=== PATIENT | male | born 1970 | race Caucasian/White ===

== ENCOUNTER 2017-12-18 11:09 | Observation (INO) ==
--- NOTE | 2017-12-18 13:52 | ED ---
HPI General Chief complaint: Respiratory Symptoms Stated complaint: SOB Time Seen by Provider: 12/18/17 13:24 Source: patient Mode of arrival: ambulatory Limitations: no limitations History of Present Illness HPI narrative: 47 yo male here for evaluation of SOB for 3 weeks. Per patient he has a history of CHF, ACS, HTN, DM. Per patient he ran out of his carvidilol and metformin about a month ago. Has been doing well but has been moving from [place] 4 weeks ago. Has had episodes of SOB that come and go, sometimes with movement, sometimes on their own. States compliance with his medications except for carvidilol and metformin. Follow with [place] for care and has an appointment in a few weeks with them. Per patient he has an EF of 20%. Has an AICD placed in August and has not had follow up care due to the move since. Denies feeling like it is shocking him. No pain. Currently feels slightly SOB. Per patient he had an episode this morning when he woke up of severe SOB which prompted evaluation. No other medical problems at this time. Takes aspirin but no other blood thinners. Related Data Home Medications Medication Instructions Recorded Confirmed aspirin 81 mg PO DAILY 12/18/17 12/18/17 atorvastatin 20 mg PO DAILY 12/18/17 12/18/17 carvedilol 12.5 mg PO BID 12/18/17 12/18/17 digoxin [Lanoxin] 0.25 mg PO DAILY 12/18/17 12/18/17 furosemide 40 mg PO DAILY 12/18/17 12/18/17 lisinopril 10 mg PO DAILY 12/18/17 12/18/17 metformin 500 mg PO BID 12/18/17 12/18/17 venlafaxine 150 mg PO BID 12/18/17 12/18/17 Allergies Allergy/AdvReac Type Severity Reaction Status Date / Time No Known Allergies Allergy Unverified 12/18/17 13:39 Review of Systems ROS: all other systems reviewed are negative [facility] Medical History Medical History CHF (congestive heart failure) (Acute) Diabetes 1.5, managed as type 1 (Acute) HTN (hypertension) (Acute) Implantable cardioverter-defibrillator (ICD) in situ (Acute) Social History Social History Substance History: Past History Second Hand Smoke Exposure: No Smoking Status: Never smoker Tobacco Type: Cigarettes How Often Do You Have a Drink Containing Alcohol: Never Recent Travel in [facility] within the Last 8 Weeks: No Recent Out of Country Travel within the Last 8 Weeks: No Substance Abuse Detail Methamphetamine: Substance Use Status: Early Remission Immunization History Tetanus Immunization: <5 Years Hx Influenza Vaccine This Season: Yes Exam Narrative Exam Narrative: GENERAL: SKIN: Warm and dry. HEAD: Atraumatic. Normocephalic. EYES: Pupils equal and round. No scleral icterus. No injection or drainage. ENT: No nasal bleeding or discharge. Mucous membranes pink and moist. Tongue is midline. No uvula deviation. NECK: Trachea midline. No JVD. CARDIOVASCULAR: Regular rate and rhythm. No murmurs, S3, s4. RESPIRATORY: No accessory muscle use. Rales heard in the lower lung esteban. Breath sounds equal bilaterally. GASTROINTESTINAL: Abdomen soft, non-tender, nondistended. Hepatic and splenic margins not palpable. MUSCULOSKELETAL: Extremities without clubbing, cyanosis, or edema. No obvious deformities. Full ROM of the upper and lower extremities bilaterally. 2+ pulses. NEUROLOGICAL: Awake and alert. No obvious cranial nerve deficits. Motor grossly within normal limits. Five out of 5 muscle strength in the arms and legs. Normal speech. PSYCHIATRIC: Appropriate mood and affect; insight and judgment normal. Course Initial Documented Vital Signs Temperature 97.8 F 12/18/17 11:29 Pulse Rate 76 12/18/17 11:29 Respiratory Rate 18 12/18/17 11:29 Blood Pressure 121/65 12/18/17 11:29 Pulse Oximetry 96 12/18/17 11:29 Last Documented Vital Signs Temperature 98.9 F 12/18/17 13:28 Pulse Rate 77 12/18/17 13:28 Respiratory Rate 18 12/18/17 13:28 Blood Pressure 119/71 12/18/17 13:28 Pulse Oximetry 96 12/18/17 15:53 Medical Decision Making SRIDEVI Attestation SRIDEVI supervised visit: Yes Attestation: I, Dr. breaux, have reviewed the advance practice practitioner's documentation and am in agreement, met with the patient face to face, made the diagnosis, and the medical decision making was done by me. *My assessment and Findings: 47 y/o male presents with shortness of breath with known depressed EF. Troponin is mildly elevated. CT without PE. Patient agrees to observation for further care MDM Narrative Medical decision making narrative: 47 yo male here for evaluation of SOB. Patient properly examined and found signs and symptoms of unclear etiology. Labs and imaging were done here. Labs and imaging did show what appears to be slightly elevated troponin. D-dimer also elevated. CTA was ordered. CT was negative for acute PE. I suspect the troponin may be elevated secondary to the patient's chronic heart disease. I do not have any previous troponin and patient himself is not aware that his troponin was elevated before. Because of this in the recommend admission for trending of troponins to better evaluate whether this may be cardiac in nature or not. I do suspect that some of the patient's symptoms may be anxiety related but cannot completely rule out heart disease secondary to his significant cardiac history. Patient agrees with this plan. My attending Dr. Breaux was made aware of findings and agrees to admission to the medical team. Case discussed with Dr. Francisco previous admission to his service. Patient was given aspirin. No heparin given at this time. Patient at all times has completely denied any chest pain. Medical Screen Exam Complete: Yes Emergency Medical Condition: Yes Differential Diagnosis Differential Diagnosis: CHF vs angina vs PE vs pleural effusion vs COPD vs asthma vs CHF exacerbation vs ACS Medical Records Medical records reviewed: Yes I reviewed the patient's medical records. Lab Data Lab results reviewed: Yes I reviewed the patient's lab results. Lab results narrative: troponin of 0.07 coags with d-dimmer elevated. Result diagrams: 12/18/17 13:42 12/18/17 13:42 Lab Results 12/18/17 12/18/17 12/18/17 Range/Units 13:42 13:42 13:42 WBC 8.1 (4.0-11.0) th/mm3 RBC 4.51 (4.50-5.90) mil/mm3 Hgb 13.9 (13.0-17.0) gm/dL Hct 40.2 (39.0-51.0) % MCV 89.2 (80.0-100.0) fL MCH 30.8 (27.0-34.0) pg MCHC 34.5 (32.0-36.0) % RDW 14.2 (11.6-17.2) % Plt Count 132 L (150-450) th/mm3 MPV 9.6 (7.0-11.0) fL Neut % (Auto) 63.1 (16.0-70.0) % Lymph % (Auto) 24.9 (9.0-44.0) % Forrest % (Auto) 9.3 H (0.0-8.0) % Eos % (Auto) 1.7 (0.0-4.0) % Baso % (Auto) 1.0 (0.0-2.0) % Neut # (Auto) 5.1 (1.8-7.7) th/mm3 Lymph # (Auto) 2.0 (1.0-4.8) th/mm3 Forrest # (Auto) 0.8 (0.0-0.9) th/mm3 Eos # (Auto) 0.1 (0.0-0.4) th/mm3 Baso # (Auto) 0.1 (0.0-0.2) th/mm3 WBC Differential . Differential Comment Auto diff final PT (9.8-11.6) sec INR Ratio APTT (24.3-30.1) sec D-Dimer Quant (PE/DVT) (0.00-0.50) mg/L FEU Sodium 143 (136-145) meq/L Potassium 3.8 (3.5-5.1) meq/L Chloride 109 H (98-107) meq/L Carbon Dioxide 24.4 (21.0-32.0) meq/L Anion Gap 10 (5-15) meq/L BUN 18 (7-18) mg/dL Creatinine 1.30 (0.60-1.30) mg/dL Estimated GFR 59 L (>89) mL/min Random Glucose 139 H (74-106) mg/dL Calcium 8.0 L (8.5-10.1) mg/dL Total Bilirubin 0.6 (0.2-1.0) mg/dL AST 28 (15-37) U/L ALT 37 (12-78) U/L Alkaline Phosphatase 93 (45-117) U/L Total Creatine Kinase 195 (39-308) U/L CK-MB (CK-2) 5.6 H (0.5-3.6) ng/mL Troponin I 0.07 H (0.02-0.05) ng/mL B-Natriuretic Peptide 245 H (0-100) pg/mL Total Protein 6.7 (6.4-8.2) g/dL Albumin 3.3 L (3.4-5.0) g/dL 12/18/17 Range/Units 15:46 WBC (4.0-11.0) th/mm3 RBC (4.50-5.90) mil/mm3 Hgb (13.0-17.0) gm/dL Hct (39.0-51.0) % MCV (80.0-100.0) fL MCH (27.0-34.0) pg MCHC (32.0-36.0) % RDW (11.6-17.2) % Plt Count (150-450) th/mm3 MPV (7.0-11.0) fL Neut % (Auto) (16.0-70.0) % Lymph % (Auto) (9.0-44.0) % Forrest % (Auto) (0.0-8.0) % Eos % (Auto) (0.0-4.0) % Baso % (Auto) (0.0-2.0) % Neut # (Auto) (1.8-7.7) th/mm3 Lymph # (Auto) (1.0-4.8) th/mm3 Forrest # (Auto) (0.0-0.9) th/mm3 Eos # (Auto) (0.0-0.4) th/mm3 Baso # (Auto) (0.0-0.2) th/mm3 WBC Differential Differential Comment PT 10.0 (9.8-11.6) sec INR 1.0 Ratio APTT 21.9 L (24.3-30.1) sec D-Dimer Quant (PE/DVT) 0.67 H (0.00-0.50) mg/L FEU Sodium (136-145) meq/L Potassium (3.5-5.1) meq/L Chloride (98-107) meq/L Carbon Dioxide (21.0-32.0) meq/L Anion Gap (5-15) meq/L BUN (7-18) mg/dL Creatinine (0.60-1.30) mg/dL Estimated GFR (>89) mL/min Random Glucose (74-106) mg/dL Calcium (8.5-10.1) mg/dL Total Bilirubin (0.2-1.0) mg/dL AST (15-37) U/L ALT (12-78) U/L Alkaline Phosphatase (45-117) U/L Total Creatine Kinase (39-308) U/L CK-MB (CK-2) (0.5-3.6) ng/mL Troponin I (0.02-0.05) ng/mL B-Natriuretic Peptide (0-100) pg/mL Total Protein (6.4-8.2) g/dL Albumin (3.4-5.0) g/dL Imaging Data Attestation: I personally reviewed and interpreted this imaging study as follows : Radiologist's impression: Chest X-Ray 12/18/17 13:39 Cardiomegaly. Pacer device from a left subclavian transvenous approach noted. Calcified granuloma right lung base. No obvious consolidation or effusion. CONCLUSION: Clear lungs. Chest CTA 12/18/17 16:28 CONCLUSION: Unremarkable study. ECG Data Attestation: I personally reviewed and interpreted this ECG as follows: Interpretation: EKG shows sinus rhythm with no sign of acute ischemia or arrhythmia. 2 PVCs noted on the EKG. No ST elevations noted. Read by me and attending. Discharge Plan Discharge Disposition Patient Disposition: 30 Still Patient Discharge Details Diagnosis: Exertional dyspnea, Elevated troponin I level Physicians Team ED Provider: Katie Breaux ED Midlevel Provider: Finesse Tolentino Primary Care Provider: Primary Care Chelsea Romero Rxs /Orders / Referrals /Forms Prescriptions: No Action furosemide 40 mg Tablet 40 mg PO DAILY RF: 0 metformin 500 mg Tablet 500 mg PO BID RF: 0 atorvastatin 20 mg Tablet 20 mg PO DAILY RF: 0 carvedilol 12.5 mg Tablet 12.5 mg PO BID RF: 0 venlafaxine 75 mg Tablet 150 mg PO BID RF: 0 aspirin 81 mg Tablet,Delayed Release (Dr/Ec) 81 mg PO DAILY RF: 0 digoxin [Lanoxin] 250 mcg Tablet 0.25 mg PO DAILY RF: 0 lisinopril 10 mg Tablet 10 mg PO DAILY RF: 0 Discharge Interventions Interventions: Vital Signs Last Done: 12/18/17 13:28 Status ED Status: Pending Admission
[2017-12-18 13:59] LABS: Baso # (Auto) 0.1 th/mm3 (0.0-0.2); Eos # (Auto) 0.1 th/mm3 (0.0-0.4); Eos % (Auto) 1.7 % (0.0-4.0); Hematocrit 40.2 % (39.0-51.0); Hemoglobin 13.9 gm/dL (13.0-17.0); Lymph % (Auto) 24.9 % (9.0-44.0); Mean Corpuscular HGB Conc 34.5 % (32.0-36.0); Mean Corpuscular Hemoglobin 30.8 pg (27.0-34.0); Mean Corpuscular Volume 89.2 fL (80.0-100.0); Mean Platelet Volume 9.6 fL (7.0-11.0); Mono # (Auto) 0.8 th/mm3 (0.0-0.9); Mono % (Auto) 9.3 % (0.0-8.0); Neut # (Auto) 5.1 th/mm3 (1.8-7.7); Neut % (Auto) 63.1 % (16.0-70.0); Platelet Count 132 th/mm3 (150-450); Red Blood Count 4.51 mil/mm3 (4.50-5.90); Red Cell Distribution Width 14.2 % (11.6-17.2); White Blood Count 8.1 th/mm3 (4.0-11.0)
[2017-12-18 14:10] LABS: Alkaline Phosphatase 93 U/L (45-117); Creatine Kinase 195 U/L (39-308); Total Protein 6.7 g/dL (6.4-8.2); Troponin I 0.07 ng/mL (0.02-0.05)
--- NOTE | 2017-12-18 14:13 | XR ---
EXAM DATE: 12/18/2017 2:03 PM EDT AGE/SEX: 47 years / Male INDICATIONS: Shortness of breath. CLINICAL DATA: This is the patient's initial encounter. Patient reports that signs and symptoms have been present for 3 weeks and indicates a pain score of 0/10. MEDICAL/SURGICAL HISTORY: Congestive heart failure. Hypertension. Diabetes mellitus type II. Pacemaker. COMPARISON: No prior exams available for comparison. FINDINGS: Cardiomegaly. Pacer device from a left subclavian transvenous approach noted. Calcified granuloma rig ht lung base. No obvious consolidation or effusion. CONCLUSION: Clear lungs. Electronically signed by: Germán Worrell MD 12/18/2017 2:12 PM EDT
[2017-12-18 14:14] LABS: Alanine Aminotransferase 37 U/L (12-78); Albumin 3.3 g/dL (3.4-5.0); Anion Gap 10 meq/L (5-15); Aspartate Aminotransferase 28 U/L (15-37); Blood Urea Nitrogen 18 mg/dL (7-18); Carbon Dioxide 24.4 meq/L (21.0-32.0); Chloride 109 meq/L (98-107); Glomerular Filtration Rate 59 mL/min (>89); Glucose,Random 139 mg/dL (74-106); Potassium 3.8 meq/L (3.5-5.1); Sodium 143 meq/L (136-145)
[2017-12-18 14:22] LABS: Creatine Kinase MB 5.6 ng/mL (0.5-3.6)
[2017-12-18 16:26] LABS: Activated Partial Thrombo Time 21.9 sec (24.3-30.1); D-Dimer 0.67 mg/L FEU (0.00-0.50)
--- NOTE | 2017-12-18 17:14 | CT ---
EXAM DATE: 12/18/2017 5:11 PM EDT AGE/SEX: 47 years / Male INDICATIONS: Short of breath. Cough for three weeks. CLINICAL DATA: This is the patient's initial encounter. Patient reports that signs and symptoms have been present for 3 days and indicates a pain score of 0/10. MEDICAL/SURGICAL HISTORY: Cardiovascular disease. Diabetes. Hypertension. None. RADIATION DOSE: 10.86 CTDI (mGy) COMPARISON: No prior exams available for comparison. TECHNIQUE: Volumetric scanning was performed using a multi-row detector CT scanner during bolus infu tejal of 80 ml Omnipaque 350 (iohexol) nonionic water-soluble contrast as a single exam dose. The robert a was post processed with a variety of visualization algorithms including full volume maximum intensi ty projection and sliding thin slab reformation. Using automated exposure control and adjustment of the mA and/or kV according to patient size, radiation dose was kept as low as reasonably achievable t o obtain optimal diagnostic quality images. DICOM format image data is available electronically for review and comparison. FINDINGS: The lungs are clear without infiltrate, nodule, or mass except for a calcified granuloma in the right lung . There is no pleural effusion. No appreciable pathological adenopathy is seen within the med iastinum. Multiple old rib fractures are seen on the right. There is no evidence of PE for techniqu e. CONCLUSION: Unremarkable study. Electronically signed by: Dione Castaneda MD 12/18/2017 5:12 PM EDT
[2017-12-18] MEDS ORDERED: Aspirin 325 MG Tablet PO ONE (17:48)
[2017-12-18] MEDS ORDERED: Bisacodyl 10 MG Supp RECTAL PRN (18:06)
[2017-12-18] MEDS ORDERED: Dextrose 50% in Water 50 ML Vial IV.PUSH PRN (18:08)
--- NOTE | 2017-12-18 19:01 | P.HPIM ---
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 Denies any peripheral edema. Denies any chest pain denies any nausea or vomiting. He recently moved here from [place] 1 month ago, and is been traveling back and forth to sit up his new home. He says he wants to get checked up and set up with a real estate legal assistant in the area. Denies any fevers, chills. Patient reports initially having episode of chest pain 2 years ago, diagnosed with cardiomyopathy with ejection fraction of 10-15%. Patient was started on medical therapy with improvement of ejection fraction to 2025%. AICD was placed. Patient has been following with real estate legal assistant until 1 month ago. Patient reports most recent stress test was -2 years ago. Reports most recent methamphetamine use was over 3 months ago. Review of Systems All other systems reviewed negative except as [facility] - History History Provided By: Patient - Medical History Medical History: Medical History (Last Reviewed 12/18/17 @ 13:49 by ODALYS Shaw) CHF (congestive heart failure) Diabetes 1.5, managed as type 1 HTN (hypertension) Implantable cardioverter-defibrillator (ICD) in situ - Surgical History Surgical History: Surgical History (Last Updated 12/18/17 @ 18:55 by Pramod Moody MD) AICD (automatic cardioverter/defibrillator) present - Tobacco History Second Hand Smoke Exposure: No Tobacco Use In Past 30 Days: No Smoking Status: Never smoker Tobacco Type: Cigarettes - Alcohol History How Often Do You Have a Drink Containing Alcohol: Never - Substance Use History Substance History: Past History - Substance Use Type Methamphetamine Status: Early Remission - Travel History Recent Travel in the [place] Within the Last 8 Weeks: No Recent Travel Out of the Country Within the Last 8 Weeks: No - Immunization History Tetanus Immunization: <5 Years Hx Influenza Vaccine This Season: Yes Medications and Allergies Active Medications: Active Medications Al Hydroxide/Mg Hydroxide (Milk Of Donny Liq) 30 ml PO Q12H PRN PRN Reason: Mild Constipation Aspirin (Ecotrin) 81 mg PO DAILY JODY Atorvastatin Calcium (Lipitor) 20 mg PO DAILY JODY Bisacodyl (Dulcolax Supp) 10 mg RECTAL DAILY PRN PRN Reason: SEVERE CONSITIPATION Carvedilol (Coreg) 12.5 mg PO BID [facility] Dextrose (D50w Vial) 50 ml IV.PUSH UNSCH PRN PRN Reason: PER HYPOGLYCEMIA PROTOCOL Furosemide (Lasix) 40 mg PO DAILY [facility] Glucagon (Glucagon Inj) 1 mg OTHER PRN PRN PRN Reason: for Hypoglycemia Protocol Insulin Aspart (Novolog Insulin Correctional Sugar Inj) 0 unit SQ ACHS JODY; Protocol Lactulose (Lactulose Liq) 30 ml PO DAILY PRN PRN Reason: SEVERE CONSITIPATION Lisinopril (Prinivil) 10 mg PO DAILY [facility] Non-Formulary Medication (Venlafaxine [Venlafaxine]) 150 mg PO BID [facility] Sennosides (Senokot) 17.2 mg PO Q12H PRN PRN Reason: Moderate Constipation Allergies Allergy/AdvReac Type Severity Reaction Status Date / Time No Known Allergies Allergy Unverified 12/18/17 13:39 Home Medications Medication Instructions Recorded Confirmed Type aspirin 81 mg PO DAILY 12/18/17 12/18/17 History atorvastatin 20 mg PO DAILY 12/18/17 12/18/17 History carvedilol 12.5 mg PO BID 12/18/17 12/18/17 History digoxin [Lanoxin] 0.25 mg PO DAILY 12/18/17 12/18/17 History furosemide 40 mg PO DAILY 12/18/17 12/18/17 History lisinopril 10 mg PO DAILY 12/18/17 12/18/17 History metformin 500 mg PO BID 12/18/17 12/18/17 History venlafaxine 150 mg PO BID 12/18/17 12/18/17 History Exam Vital signs: Vital Signs 12/18/17 11:29 12/18/17 13:20 12/18/17 13:28 Temperature 97.8 F 98.9 F 98.9 F Pulse Rate 76 98 H 77 Respiratory Rate 18 18 18 Blood Pressure 121/65 129/77 119/71 Pulse Oximetry 96 98 97 12/18/17 13:43 12/18/17 15:53 12/18/17 16:00 Temperature Pulse Rate 76 Respiratory Rate 18 Blood Pressure 139/86 Pulse Oximetry 98 96 97 Intake & Output 12/17/17 12/18/17 12/18/17 18:59 06:59 18:59 Weight 123.377 kg Narrative: GENERAL: Patient sitting in bed. Appears comfortable. Alert and oriented 3. SKIN: Warm and dry. HEAD: Atraumatic. Normocephalic. EYES: Pupils equal and round. No scleral icterus. No injection or drainage. ENT: No nasal bleeding or discharge. Mucous membranes pink and moist. NECK: Trachea midline. No JVD. CARDIOVASCULAR: Regular rate and rhythm. RESPIRATORY: No accessory muscle use. Clear to auscultation. Breath sounds equal bilaterally. GASTROINTESTINAL: Abdomen soft, non-tender, nondistended. Hepatic and splenic margins not palpable. MUSCULOSKELETAL: Extremities without clubbing, cyanosis.. No obvious deformities. Trace peripheral edema. NEUROLOGICAL: Awake and alert. No obvious cranial nerve deficits. Motor grossly within normal limits. Five out of 5 muscle strength in the arms and legs. Normal speech. PSYCHIATRIC: Appropriate mood and affect; insight and judgment normal. Results - Labs CBC & Chem 7: 12/18/17 13:42 12/18/17 13:42 Labs: Short CBC 12/18/17 Range/Units 13:42 WBC 8.1 (4.0-11.0) th/mm3 Hgb 13.9 (13.0-17.0) gm/dL Hct 40.2 (39.0-51.0) % Plt Count 132 L (150-450) th/mm3 BMP 12/18/17 13:42 Sodium 143 Potassium 3.8 Chloride 109 H Carbon Dioxide 24.4 BUN 18 Creatinine 1.30 Calcium 8.0 L Cardiac Enzymes 12/18/17 Range/Units 13:42 Total Creatine Kinase 195 (39-308) U/L CK-MB (CK-2) 5.6 H (0.5-3.6) ng/mL Troponin I 0.07 H (0.02-0.05) ng/mL Liver Function 12/18/17 Range/Units 13:42 Total Bilirubin 0.6 (0.2-1.0) mg/dL AST 28 (15-37) U/L ALT 37 (12-78) U/L Alkaline Phosphatase 93 (45-117) U/L Albumin 3.3 L (3.4-5.0) g/dL - Imaging Impressions Chest X-Ray 12/18/17 13:39 Cardiomegaly. Pacer device from a left subclavian transvenous approach noted. Calcified granuloma right lung base. No obvious consolidation or effusion. CONCLUSION: Clear lungs. Chest CTA 12/18/17 16:28 CONCLUSION: Unremarkable study. Caprini VTE Risk Assessment Caprini VTE Risk Assessment: No/Low Risk (score <= 1) Caprini Risk Assessment Model: Point Value = 1 Point Value = 2 Point Value = 3 Point Value = 5 Age 41-60 Minor surgery BMI > 25 kg/m2 Swollen legs Varicose veins or History of unexplained or recurrent spontaneous Oral contraceptives or hormone replacement Sepsis (< 1 month) Serious lung disease, including pneumonia (< 1 month) Abnormal pulmonary function Acute myocardial infarction Congestive heart failure (< 1 month) History of inflammatory bowel disease Medical patient at bed rest Age 61-74 Arthroscopic surgery Major open surgery (> 45 min) Laparoscopic surgery (> 45 min) Malignancy Confined to bed (> 72 hours) Immobilizing plaster cast Central venous access Age >= 75 History of VTE Family history of VTE Factor V Leiden Prothrombin [id number] Lupus anticoagulant Anticardiolipin antibodies Elevated serum homocysteine Heparin-induced thrombocytopenia Other congenital or acquired thrombophilia Stroke (< 1 month) Elective arthroplasty Hip, pelvis, or leg fracture Acute spinal cord injury (< 1 month) Prophylaxis Regimen: Total Risk Factor Score Risk Level Prophylaxis Regimen 0-1 Low Early ambulation 2 Moderate Order ONE of the following: *Sequential Compression Device (SCD) *Heparin 5000 units SQ BID 3-4 Higher Order ONE of the following medications: *Heparin 5000 units SQ TID *Enoxaparin/Lovenox 40 mg SQ daily (WT < 150 kg, CrCl > 30 mL/min) *Enoxaparin/Lovenox 30 mg SQ daily (WT < 150 kg, CrCl > 10-29 mL/min) *Enoxaparin/Lovenox 30 mg SQ BID (WT < 150 kg, CrCl > 30 mL/min) AND/OR *Sequential Compression Device (SCD) 5 or more Highest Order ONE of the following medications: *Heparin 5000 units SQ TID (Preferred with Epidurals) *Enoxaparin/Lovenox 40 mg SQ daily (WT < 150 kg, CrCl > 30 mL/min) *Enoxaparin/Lovenox 30 mg SQ daily (WT < 150 kg, CrCl > 10-29 mL/min) *Enoxaparin/Lovenox 30 mg SQ BID (WT < 150 kg, CrCl > 30 mL/min) AND *Sequential Compression Device (SCD) Assessment and Plan - Plan //Nonischemic cardiomyopathy secondary to methamphetamine use. //Mild systolic CHF exacerbation Chest x-ray without infiltrates, BNP 245. EKG abnormal, with right axis deviation, no ST elevation. ED is concerned that first troponin is 0.07. Patient denies chest pain. Will trend EKGs and troponins. Echocardiogram will be ordered. Cardiology consulted. Restart CHF medications. //Hyperlipidemia chronic. Continue home medication. //History of atrial fibrillation. No history of stroke This was likely secondary to methamphetamine use. Will check digoxin level.. Cardiology will be consulted. //Diabetes mellitus. Diabetic diet and insulin sliding scale. //History of methamphetamine use. Patient counseled on continued cessation. Discussed Condition With: Patient, nurse, ED physician
[2017-12-18] MEDS: Insulin NovoLOG Aspart Correctional Sugar Inj SQ SCH (21:13)
[2017-12-18] MEDS: Carvedilol 12.5 MG Tablet PO SCH (21:13)
--- NOTE | 2017-12-18 21:32 | ECG ---
Date Performed: 12/18/2017 Time Performed: 15:27:15 PTAGE: 47 years EKG: Sinus rhythm WITH FIRST DEGREE AV BLOCK WITH OCCASIONAL VENTRICULAR PREMATURE COMPLEXES RIGHT AXIS DEVIATION POSS IBLE ANTERIOR MYOCARDIAL INFARCTION ABNORMAL ECG NO PREVIOUS TRACING DOCTOR: James Garcia Interpretating Date/Time 12/18/2017 21:31:42
[2017-12-18 21:52] LABS: Troponin I 0.1 ng/mL (0.02-0.05)
[2017-12-18 22:03] LABS: Amphetamine Screen,Urine Pos (Neg); Barbiturate Screen,Urine Neg (Neg); Cannabinoid Screen,Urine Neg (Neg); Cocaine Screen,Urine Neg (Neg)
[2017-12-18 22:09] LABS: Opiate Screen,Urine Neg (Neg)
[2017-12-19 03:05] LABS: Baso % (Auto) 0.6 % (0.0-2.0); Eos # (Auto) 0.2 th/mm3 (0.0-0.4); Eos % (Auto) 2.3 % (0.0-4.0); Hematocrit 39.5 % (39.0-51.0); Hemoglobin 13.5 gm/dL (13.0-17.0); Lymph # (Auto) 2.6 th/mm3 (1.0-4.8); Lymph % (Auto) 33.7 % (9.0-44.0); Mean Corpuscular HGB Conc 34.1 % (32.0-36.0); Mean Corpuscular Hemoglobin 30.5 pg (27.0-34.0); Mean Corpuscular Volume 89.6 fL (80.0-100.0); Mean Platelet Volume 9.1 fL (7.0-11.0); Mono # (Auto) 0.8 th/mm3 (0.0-0.9); Mono % (Auto) 10.5 % (0.0-8.0); Neut # (Auto) 4.1 th/mm3 (1.8-7.7); Neut % (Auto) 52.9 % (16.0-70.0); Platelet Count 130 th/mm3 (150-450); Red Blood Count 4.41 mil/mm3 (4.50-5.90); White Blood Count 7.8 th/mm3 (4.0-11.0)
[2017-12-19 03:36] LABS: Alanine Aminotransferase 34 U/L (12-78); Albumin 3.1 g/dL (3.4-5.0); Anion Gap 9 meq/L (5-15); Blood Urea Nitrogen 16 mg/dL (7-18); Carbon Dioxide 27.3 meq/L (21.0-32.0); Chloride 110 meq/L (98-107); Glucose,Random 136 mg/dL (74-106); Potassium 3.8 meq/L (3.5-5.1); Sodium 146 meq/L (136-145)
[2017-12-19 03:40] LABS: Alkaline Phosphatase 91 U/L (45-117); Aspartate Aminotransferase 21 U/L (15-37); Creatine Kinase 137 U/L (39-308); Glomerular Filtration Rate 63 mL/min (>89); Total Protein 6.3 g/dL (6.4-8.2); Troponin I 0.09 ng/mL (0.02-0.05)
--- NOTE | 2017-12-19 06:31 | MB ---
cc: Los Martinez MD DATE: 12/19/2017 HISTORY OF PRESENT ILLNESS: Naresh is a 47-year-old gentleman with a history of CHF, status post ICD, hypertension and diabetes, who ran out of his medicines several days ago, presents to the ER with chief complaint of shortness of breath. He did experience some chest tightness with the shortness of breath. Currently, he is using BiPAP, asleep, in no acute distress, easily arousable. Denies any fevers, chills, cough, GI or bleeding, PND, orthopnea, syncope or dizziness. PAST MEDICAL HISTORY: Also includes diabetes. He states he had a heart catheterization in the past 2 or 3 years ago approximately, which showed no significant obstructive disease. He does not have a stent. Past medical history also includes an EF of 20%. SOCIAL HISTORY: Denies tobacco or alcohol use. He does have a history of methamphetamine abuse. ALLERGIES: NONE. MEDICATIONS IN THE HOSPITAL: 1. Aspirin 81 mg a day. 2. Lipitor 20 mg daily. 3. Coreg 12.5 b.i.d. 4. Lasix 40 mg daily. 5. Insulin. 6. Lisinopril 10 mg daily. 7. Effexor 150 mg b.i.d. PHYSICAL EXAMINATION: VITAL SIGNS: Temperature 97.8, pulse 68, respiratory rate 16, blood pressure 140/68. GENERAL: He is alert, oriented x3, in no acute distress. NECK: Supple. No JVD. No bruits. CARDIOVASCULAR: S1, S2. No murmurs, rubs, gallops. LUNGS: Clear to auscultation bilaterally. ABDOMEN: Soft, nontender, nondistended with positive bowel sounds. EXTREMITIES: No lower extremity edema. LABORATORY DATA: White count 7.8, hemoglobin 13.5, hematocrit 39.5, platelet count 130. INR is 1.0. Sodium 146, potassium 3.8, chloride 110, bicarbonate 27.3, BUN 16, creatinine 1.23. Troponins 0.07, 0.10 and 0.09. CK 195, 165 and 137. LFTs normal. Toxicology is positive for amphetamines. Chest x-ray: Pacer device from a left subclavian transvenous approach noted. Clear lungs. EKG: Normal sinus rhythm at 83 beats per minute, poor R-wave progression and PVCs. CTA of the chest: Unremarkable study. DIAGNOSES: 1. [id number] myocardial infarction. 2. Cardiomyopathy. 3. Dyspnea. 4. Amphetamine abuse. 5. Thrombocytopenia. 6. Hypernatremia. 7. Decompensated congestive heart failure. 8. Medical noncompliance. DISCUSSION: The patient's medicines have been restarted. He feels better now. He appears to be on optimal medical therapy with Coreg 12.5 b.i.d., Lasix 40 mg daily, lisinopril 10 mg daily, aspirin. Obviously, he needs to abstain from methamphetamine abuse. We will trend his troponins, hemodynamics and symptoms. MD MARIANA Yanez/prosper , 05:20 AM , 05:27 AM
--- NOTE | 2017-12-19 07:58 | ECG ---
Date Performed: 12/19/2017 Time Performed: 00:30:27 PTAGE: 47 years EKG: Sinus rhythm WITH FIRST DEGREE AV BLOCK WITH OCCASIONAL VENTRICULAR PREMATURE COMPLEXES POOR R WAVE PROGRESSION N ONSPECIFIC INTRAVENTRICULAR CONDUCTION DELAY T-WAVE ABNORMALITY, CONSIDER LATERAL ISCHEMIA ABNORMAL E CG PREVIOUS TRACING : 12/18/2017 15.27 No significant change from previous tracing noted. DOCTOR: James Garcia Interpretating Date/Time 12/19/2017 07:55:58
[2017-12-19] MEDS: Insulin NovoLOG Aspart Correctional Sugar Inj SQ SCH ×2 (08:27→13:40)
[2017-12-19] MEDS: Carvedilol 12.5 MG Tablet PO SCH (08:29)
[2017-12-19] MEDS ORDERED: Furosemide 40 MG Tablet PO SCH (09:00)
[2017-12-19] MEDS ORDERED: Lisinopril 10 MG Tablet PO SCH (09:00)
--- NOTE | 2017-12-19 12:53 | ECHRPT ---
Indication: CARDIOMYOPATHY CONCLUSIONS The left ventricular systolic function is severely reduced with an estimated ejection fraction less than 20%. Severely dilated left ventricle. Wall thickness is normal. There is global left ventricular dysfunction. A pacemaker wire is noted. The left atrial size is mildly dilated. [id number] mitral valve regurgitation. Aortic valve sclerosis is present. There is trace tricuspid valve regurgitation. The estimated pulmonary arterial pressure is 41.6 mmHg. Trivial pulmonary valve regurgitation. BP: / HR: Rhythm: Atrial fibrillation MEASUREMENTS (Male / Female) Normal Values Technical Quality:Fair 2D ECHO LV Diastolic Diameter PLAX 7.8 cm 4.2 - 5.9 / 3.9 - 5.3 cm LV Systolic Diameter PLAX 7.4 cm IVS Diastolic Thickness 1.0 cm 0.6 - 1.0 / 0.6 - 0.9 cm LVPW Diastolic Thickness 1.0 cm 0.6 - 1.0 / 0.6 - 0.9 cm LV Relative Wall Thickness 0.3 LVOT Diameter 2.1 cm LA Systolic Diameter LX 5.0 cm 3.0 - 4.0 / 2.7 - 3.8 cm LV Ejection Fraction MOD 4C 19.5 % LV Ejection Fraction 4C AL 21.7 % M-MODE Aortic Root Diameter MM 3.0 cm LA Systolic Diameter MM 4.0 cm LA Ao Ratio MM 1.3 AV Cusp Separation MM 2.2 cm DOPPLER AV Peak Velocity 198.0 cm/s AV Peak Gradient 15.7 mmHg LVOT Peak Velocity 66.6 cm/s LVOT Peak Gradient 1.8 mmHg AV Area Cont Eq pk 1.2 cm MV Area PHT 6.5 cm Mitral E Point Velocity 127.0 cm/s Mitral A Point Velocity 52.3 cm/s Mitral E to A Ratio 2.4 LV E' Lateral Velocity 15.7 cm/s Mitral E to LV E' Lateral Ratio 8.1 LV E' Septal Velocity 4.9 cm/s Mitral E to LV E' Septal Ratio 26.1 TR Peak Velocity 281.0 cm/s TR Peak Gradient 31.6 mmHg Right Atrial Pressure 10.0 mmHg Pulmonary Artery Systolic Pressu 41.6 mmHg Right Ventricular Systolic Press 41.6 mmHg PV Peak Velocity 85.5 cm/s PV Peak Gradient 2.9 mmHg FINDINGS LEFT VENTRICLE The left ventricular systolic function is severely reduced with an estimated ejection fraction less than 20%. Severely dilated left ventricle. Wall thickness is normal. There is global left ventricular dysfunction. RIGHT VENTRICLE A pacemaker wire is noted. LEFT ATRIUM The left atrial size is mildly dilated. RIGHT ATRIUM The right atrial size is normal. ATRIAL SEPTUM Normal atrial septal thickness without atrial level shunting by limited color doppler interrogation. AORTA The aortic root and proximal ascending aorta are normal in size on limited imaging. MITRAL VALVE Structurally normal mitral valve. [id number]-ea-maok mitral valve regurgitation. AORTIC VALVE Trileaflet aortic valve. Aortic valve sclerosis is present. TRICUSPID VALVE Structurally normal tricuspid valve. There is trace tricuspid valve regurgitation. The estimated pulmonary arterial pressure is 41.6 mmHg. PULMONARY VALVE Trivial pulmonary valve regurgitation. VESSELS The inferior vena cava is normal in size. PERICARDIUM No pericardial effusion. Juanpablo Gayle MD, FACC (Electronically Signed) Final Date:19 December 2017 12:52
--- NOTE | 2017-12-19 14:01 | P.PN ---
Subjective Interval history: follow up for sob: Shortness of breath improved, diuresing well, no chest pain, no palpitations, telemetry sinus rhythm with short episode of 4 beat wide complex tach. Using CPAP at night, slept okay. Patient indicates that prior to AICD he was wearing LifeVest for almost a year and his heavy duty diesel mechanic in [place] had spoken to him about a possible heart transplant. Admits to recent relapse with use of methamphetamine and alcohol use. States that he moved down here to get away from drugs and is [facility]. Physical Exam Vital signs: Vital Signs 12/18/17 15:53 12/18/17 16:00 12/18/17 20:00 Temperature 98.5 F Pulse Rate 76 60 Respiratory Rate 18 17 Blood Pressure 139/86 138/105 H Pulse Oximetry 96 97 97 12/18/17 22:14 12/19/17 00:00 12/19/17 02:36 Temperature 98.5 F Pulse Rate 75 60 75 Respiratory Rate 16 17 Blood Pressure 121/88 139/76 Pulse Oximetry 97 95 12/19/17 02:56 12/19/17 04:00 12/19/17 07:40 Temperature 97.8 F Pulse Rate 71 71 65 Respiratory Rate 16 Blood Pressure 140/68 Pulse Oximetry 98 12/19/17 07:46 12/19/17 08:53 12/19/17 12:56 Temperature 97.4 F L 97.7 F Pulse Rate 72 74 Respiratory Rate 18 20 Blood Pressure 121/94 H 123/85 Pulse Oximetry 97 97 97 Intake & Output 12/18/17 12/19/17 12/19/17 18:59 06:59 18:59 Weight 123.377 kg 123.377 kg Other: Weight On Admission 123.377 kg Narrative: GENERAL: Well-nourished, well-developed patient in no apparent distress. SKIN: Warm and dry. HEAD: Atraumatic. Normocephalic. EYES: Pupils equal and round. No scleral icterus. No injection or drainage. ENT: No nasal bleeding or discharge. Mucous membranes pink and moist. NECK: Trachea midline. No JVD. CARDIOVASCULAR: Regular rate and rhythm. RESPIRATORY: No accessory muscle use. Clear to auscultation. Breath sounds equal bilaterally. GASTROINTESTINAL: Abdomen soft, non-tender, nondistended. Hepatic and splenic margins not palpable. MUSCULOSKELETAL: Extremities without clubbing, cyanosis, or edema. No obvious deformities. NEUROLOGICAL: Awake and alert and oriented 3. No obvious cranial nerve deficits. Motor grossly within normal limits. Five out of 5 muscle strength in the arms and legs. Normal speech. PSYCHIATRIC: Appropriate mood and affect; insight and judgment normal. Results - Labs CBC & Chem 7: 12/19/17 02:33 12/19/17 02:33 Laboratory Results - last 24 hr 12/18/17 12/18/17 12/18/17 13:42 13:42 15:46 WBC RBC Hgb Hct MCV MCH MCHC RDW Plt Count MPV Neut % (Auto) Lymph % (Auto) [place] % (Auto) Eos % (Auto) Baso % (Auto) Neut # (Auto) Lymph # (Auto) [place] # (Auto) Eos # (Auto) Baso # (Auto) WBC Differential Differential Comment PT 10.0 INR 1.0 APTT 21.9 L D-Dimer Quant (PE/DVT) 0.67 H Sodium 143 Potassium 3.8 Chloride 109 H Carbon Dioxide 24.4 Anion Gap 10 BUN 18 Creatinine 1.30 Estimated GFR 59 L POC Glucose Random Glucose 139 H Calcium 8.0 L Total Bilirubin 0.6 AST 28 ALT 37 Alkaline Phosphatase 93 Total Creatine Kinase 195 CK-MB (CK-2) 5.6 H Troponin I 0.07 H B-Natriuretic Peptide 245 H Total Protein 6.7 Albumin 3.3 L Digoxin Urine Opiates Screen Ur Barbiturates Screen Ur Amphetamines Screen U Benzodiazepines Scrn Urine Cocaine Screen U Cannabinoids Screen 12/18/17 12/18/17 12/18/17 20:04 20:04 20:58 WBC RBC Hgb Hct MCV MCH MCHC RDW Plt Count MPV Neut % (Auto) Lymph % (Auto) [place] % (Auto) Eos % (Auto) Baso % (Auto) Neut # (Auto) Lymph # (Auto) [place] # (Auto) Eos # (Auto) Baso # (Auto) WBC Differential Differential Comment PT INR APTT D-Dimer Quant (PE/DVT) Sodium Potassium Chloride Carbon Dioxide Anion Gap BUN Creatinine Estimated GFR POC Glucose 174 H Random Glucose Calcium Total Bilirubin AST ALT Alkaline Phosphatase Total Creatine Kinase 165 CK-MB (CK-2) Troponin I 0.10 H B-Natriuretic Peptide Total Protein Albumin Digoxin 0.9 Urine Opiates Screen Ur Barbiturates Screen Ur Amphetamines Screen U Benzodiazepines Scrn Urine Cocaine Screen U Cannabinoids Screen 12/18/17 12/19/17 12/19/17 21:36 02:33 02:33 WBC 7.8 RBC 4.41 L Hgb 13.5 Hct 39.5 MCV 89.6 MCH 30.5 MCHC 34.1 RDW 14.0 Plt Count 130 L MPV 9.1 Neut % (Auto) 52.9 Lymph % (Auto) 33.7 [place] % (Auto) 10.5 H Eos % (Auto) 2.3 Baso % (Auto) 0.6 Neut # (Auto) 4.1 Lymph # (Auto) 2.6 [place] # (Auto) 0.8 Eos # (Auto) 0.2 Baso # (Auto) 0.0 WBC Differential . Differential Comment Auto diff final PT INR APTT D-Dimer Quant (PE/DVT) Sodium 146 H Potassium 3.8 Chloride 110 H Carbon Dioxide 27.3 Anion Gap 9 BUN 16 Creatinine 1.23 Estimated GFR 63 L POC Glucose Random Glucose 136 H Calcium 8.0 L Total Bilirubin 0.5 AST 21 ALT 34 Alkaline Phosphatase 91 Total Creatine Kinase 137 CK-MB (CK-2) Troponin I 0.09 H B-Natriuretic Peptide Total Protein 6.3 L Albumin 3.1 L Digoxin Urine Opiates Screen Neg Ur Barbiturates Screen Neg Ur Amphetamines Screen Pos H U Benzodiazepines Scrn Neg Urine Cocaine Screen Neg U Cannabinoids Screen Neg 12/19/17 12/19/17 07:18 11:42 WBC RBC Hgb Hct MCV MCH MCHC RDW Plt Count MPV Neut % (Auto) Lymph % (Auto) [place] % (Auto) Eos % (Auto) Baso % (Auto) Neut # (Auto) Lymph # (Auto) [place] # (Auto) Eos # (Auto) Baso # (Auto) WBC Differential Differential Comment PT INR APTT D-Dimer Quant (PE/DVT) Sodium Potassium Chloride Carbon Dioxide Anion Gap BUN Creatinine Estimated GFR POC Glucose 131 H 200 H Random Glucose Calcium Total Bilirubin AST ALT Alkaline Phosphatase Total Creatine Kinase CK-MB (CK-2) Troponin I B-Natriuretic Peptide Total Protein Albumin Digoxin Urine Opiates Screen Ur Barbiturates Screen Ur Amphetamines Screen U Benzodiazepines Scrn Urine Cocaine Screen U Cannabinoids Screen - Imaging Impressions Chest X-Ray 12/18/17 13:39 Cardiomegaly. Pacer device from a left subclavian transvenous approach noted. Calcified granuloma right lung base. No obvious consolidation or effusion. CONCLUSION: Clear lungs. Chest CTA 12/18/17 16:28 CONCLUSION: Unremarkable study. 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 He recently moved here from [place] 1 month ago, and is been traveling back and forth to sit up his new home. Reported dx with cardiomyopathy with ejection fraction of 10-15%. Patient was started on medical therapy with improvement of ejection fraction to 2025%. AICD was placed. Patient has been following with heavy duty diesel mechanic until 1 month ago. Patient reports most recent stress test was -2 years ago. Reports most recent methamphetamine use was over 3 months ago. Acute on chronic CHF exacerbation Nonischemic cardiomyopathy secondary to methamphetamine use. Chest x-ray without infiltrates, BNP 245. EKG abnormal, with right axis deviation, no ST elevation. -Continue with Lasix 40 mg po daily -d/w pt need for compliance -appreciate card input -Echo done,EF < 20%, severely dilated LV Elevated trop. poss sec. to CHF -serial trop x 3 done, 3rd set did not trend up -continue ASA/statin/BB/Wil Hyperlipidemia chronic -continue statin Hx of afib, SR on monitor -Continue BB, Dig -Dig level 0.9 Type 2 diabetes Continue with Accu-Cheks before meals and at bedtime with sliding scale Diabetic diet Methamphetamine use Patient has been counseled extensively and advised to stop completely. Noncompliant -Patient has been counseled about being compliant with medications and follow- up with cardiology. Indicates that he is [facility] as well as with local heavy duty diesel mechanic. PTSD, has been using methamphetamine and alcohol use to deal with anxiety. -Continue Effexor needs to seek [facility] the [facility]. Patient verbalizes understanding. Case management consultation to assist with medications. Will receive 1 month supply of medications. Patient stable, symptoms have improved. Discussed with patient and at length, discontinue medications If he cannot find a local primary care physician, he is instructed to go to the [facility]. Cleared for discharge by cardiology Patient can follow-up with Dr. Martinez if he so desires Continue heart healthy diabetic diet Activity as tolerated He is to abstain from drinking alcohol and using methamphetamine.
== END 2017-12-19 15:51 | disposition home or self-care (01) ==
LOC: NEDA 11:09 → NEPE 11:09 → NEPGCP 19:18
PROVIDERS: ADMIT Hospitalist; ATTEND Hospitalist
DX: E11.9 Type 2 diabetes mellitus without complications; I21.4 Non-ST elevation (NSTEMI) myocardial infarction; Z79.84 Long term (current) use of oral hypoglycemic drugs; Z91.19 Patient's noncompliance with other medical treatment and regimen; F15.10 Other stimulant abuse, uncomplicated; Z79.82 Long term (current) use of aspirin; E78.5 Hyperlipidemia, unspecified; E87.0 Hyperosmolality and hypernatremia; D69.6 Thrombocytopenia, unspecified; I11.0 Hypertensive heart disease with heart failure; I48.91 Unspecified atrial fibrillation; F43.10 Post-traumatic stress disorder, unspecified; I50.23 Acute on chronic systolic (congestive) heart failure; Z95.810 Presence of automatic (implantable) cardiac defibrillator; I42.7 Cardiomyopathy due to drug and external agent